=== PATIENT | male | born 1970 | race African-American/Black ===

== ENCOUNTER 2021-07-29 12:42 | Inpatient (IN) ==
[2021-07-29 19:01] LABS: ABS Lymphocytes 0.9 10^3/ul (1.0-4.8); ABS Monocytes 0.2 10^3/ul (0-0.8); ABS Neutrophils 3.5 10^3/ul (1.5-7.7); Eosinophil % 0.2 %; Hematocrit 34 % (42-52); Hemoglobin 11.1 g/dL (14.0-18.0); Lymphocyte % 18.7 %; Mean Corpuscular HGB Conc 33 g/dL (31-36); Mean Corpuscular Hemoglobin 32 pg (27-31); Mean Corpuscular Volume 98 fL (80-94); Mean Platelet Volume 6.1 fL (7.4-10.4); Nucleated Red Blood Cells % 0.4; Platelet Count 431 10^3/uL (150-450); Red Blood Count 3.45 10^6 /uL (4.18-5.48); Red Cell Distribution Width 15 % (10-15); White Blood Count 4.6 10^3/uL (3.5-10.8)
[2021-07-29 19:02] LABS: Albumin 2.2 g/dL (3.2-5.2); Calcium 7.2 mg/dL (8.6-10.3); Magnesium 1.4 mg/dL (1.9-2.7); Total Bilirubin 0.6 mg/dL (0.2-1.0)
[2021-07-29 19:08] LABS: Albumin/Globulin Ratio 0.6 (1-3); C Reactive Protein 36.03 mg/L (<8.01); Globulin 3.5 g/dL (2-4); Total Protein 5.7 g/dL (6.4-8.9)
[2021-07-29 19:10] LABS: Potassium 5.2 mmol/L (3.5-5.0)
[2021-07-29] MEDS ORDERED: Lactated Ringers 1000 ml BAG 1,000 ML IV ONE (21:31)
[2021-07-29] MEDS ORDERED: Magnesium Sulfate 2 gm BAG 2 GM/50 ML BAG IVPB ONE (21:31)
[2021-07-29] MEDS ORDERED: Iohexol 300 (CONTRAST) 10 ML SDV IV ONE (23:23)
[2021-07-30 00:20] LABS: Urine Appearance Cloudy; Urine Bilirubin Negative (Negative); Urine Blood Negative (Negative); Urine Color Yellow; Urine Glucose Negative (Negative); Urine Ketones Trace (Negative); Urine Nitrite Negative (Negative); Urine Protein Negative (Negative); Urine Specific Gravity 1.011 (1.002-1.030); Urine Urobilinogen Negative (Negative)
[2021-07-30 00:25] LABS: Urine Bacteria 1+ (Absent); Urine Red Blood Cell Trace(0-2/hpf) (Absent); Urine Squamous Epithelial Cell Present (Absent); Urine White Blood Cell 3+(>20/hpf) (Absent)
[2021-07-30] MEDS ORDERED: Albuterol HFA INHALER 8 gm MDI INH PRN (01:37)
[2021-07-30] MEDS: Clindamycin 600 MG/D5W BAG 600 MG/50 ML BAG IV SCH ×5 (02:03→19:51)
[2021-07-30 03:22] LABS: Rapid COVID-19 Molecular Undetected (Undetected)
[2021-07-30 06:31] LABS: ABS Lymphocytes 0.9 10^3/ul (1.0-4.8); ABS Monocytes 0.2 10^3/ul (0-0.8); ABS Neutrophils 2.9 10^3/ul (1.5-7.7); Eosinophil % 0.3 %; Hematocrit 26 % (42-52); Hemoglobin 8.6 g/dL (14.0-18.0); Lymphocyte % 22.4 %; Mean Corpuscular HGB Conc 33 g/dL (31-36); Mean Corpuscular Hemoglobin 31 pg (27-31); Mean Corpuscular Volume 96 fL (80-94); Nucleated Red Blood Cells % 0.1; Platelet Count 266 10^3/uL (150-450); Red Blood Count 2.73 10^6 /uL (4.18-5.48); Red Cell Distribution Width 15 % (10-15); White Blood Count 4.1 10^3/uL (3.5-10.8)
[2021-07-30 06:56] LABS: Calcium 6.5 mg/dL (8.6-10.3); Potassium 4.2 mmol/L (3.5-5.0)
[2021-07-30 07:54] LABS: Magnesium 1.9 mg/dL (1.9-2.7)
[2021-07-30] MEDS: NS 0.9% 1000 ml BAG 1,000 ML IV SCH (09:40)
[2021-07-30] MEDS ORDERED: Lactated Ringers 1000 ml BAG 1,000 ML IV ONE (13:33)
[2021-07-30 15:47] LABS: ABS Lymphocytes 0.8 10^3/ul (1.0-4.8); ABS Monocytes 0.2 10^3/ul (0-0.8); ABS Neutrophils 2.5 10^3/ul (1.5-7.7); Eosinophil % 0.3 %; Hematocrit 27 % (42-52); Hemoglobin 8.7 g/dL (14.0-18.0); Lymphocyte % 22.6 %; Mean Corpuscular HGB Conc 33 g/dL (31-36); Mean Corpuscular Hemoglobin 31 pg (27-31); Mean Corpuscular Volume 95 fL (80-94); Mean Platelet Volume 5.9 fL (7.4-10.4); Nucleated Red Blood Cells % 0.1; Platelet Count 312 10^3/uL (150-450); Red Blood Count 2.79 10^6 /uL (4.18-5.48); Red Cell Distribution Width 15 % (10-15); White Blood Count 3.6 10^3/uL (3.5-10.8)
[2021-07-30 15:55] LABS: INR 1.1 (0.86-1.15)
[2021-07-30] MEDS ORDERED: Gadoteridol (CONTRAST) 279.3 MG/ML 10 ML IV ONE (21:12)
[2021-07-31] MEDS: Heparin 5000 UNITS/ML 1 mL VIAL SUBCUT SCH ×4 (00:01→23:42)
[2021-07-31] MEDS ORDERED: Calcium Carb (TUMS) 500 mg CHEW TAB PO PRN (00:32)
[2021-07-31] MEDS: Morphine 2 MG/ML SYRINGE IV PRN (01:06)
[2021-07-31] MEDS: NS 0.9% 1000 ml BAG 1,000 ML IV SCH ×2 (01:38→15:54)
[2021-07-31] MEDS: Clindamycin 600 MG/D5W BAG 600 MG/50 ML BAG IV SCH ×2 (03:52→12:37)
[2021-07-31 06:31] LABS: ABS Monocytes 0.3 10^3/ul (0-0.8); ABS Neutrophils 1.7 10^3/ul (1.5-7.7); Eosinophil % 1.4 %; Hematocrit 24 % (42-52); Hemoglobin 8.1 g/dL (14.0-18.0); Lymphocyte % 32.6 %; Mean Corpuscular HGB Conc 34 g/dL (31-36); Mean Corpuscular Hemoglobin 32 pg (27-31); Mean Corpuscular Volume 94 fL (80-94); Mean Platelet Volume 5.9 fL (7.4-10.4); Nucleated Red Blood Cells % 0.2; Platelet Count 266 10^3/uL (150-450); Red Blood Count 2.56 10^6 /uL (4.18-5.48); Red Cell Distribution Width 15 % (10-15); White Blood Count 3.1 10^3/uL (3.5-10.8)
[2021-07-31 06:50] LABS: Anion Gap 5 mmol/L (2-11); Blood Urea Nitrogen 11 mg/dL (6-24); CO2 Carbon Dioxide 23 mmol/L (22-32); Chloride 104 mmol/L (101-111); Glucose 79 mg/dL (70-100); Magnesium 1.4 mg/dL (1.9-2.7); Potassium 3.5 mmol/L (3.5-5.0); Sodium 132 mmol/L (135-145)
[2021-07-31] MEDS ORDERED: Potassium Chlor 20 meq TAB.ER PO ONE (07:34)
[2021-07-31] MEDS ORDERED: Calcium Gluconate 2 GM in NS 0.9% 100 ml BAG 100 ML IV ONE (08:00)
[2021-07-31] MEDS ORDERED: Magnesium Sulfate IV 3 GM in NS 0.9% 100 ml BAG 100 ML IVPB ONE (08:00)
[2021-07-31 11:35] LABS: Troponin I 0.01 ng/mL (<0.03)
[2021-07-31 14:51] LABS: HIV 4th Generation Nonreactive (Nonreactive)
[2021-07-31] MEDS ORDERED: Piperacillin/Tazobac ADVAN 3.375 GM in NS 0.9% 100 ml BAG 100 ML IV ONE (18:56)
[2021-07-31] MEDS ORDERED: Zosyn per Pharmacy NOTE FOLLOW UP SCH (19:00)
[2021-07-31 19:45] LABS: % Iron Saturation 46 % (15-55); Iron 48 ug/dL (50-212); Total Iron Binding Capacity 105 mcg/dL (250-450); Transferrin < 75 mg/dL (203-362); Unsaturated Iron Binding < 90 ug/dL
[2021-07-31 20:05] LABS: Ferritin 296.1 ng/mL (24-336)
[2021-07-31 21:34] LABS: LDH 176 U/L (140-271)
[2021-07-31] MEDS ORDERED: Ondansetron 4 mg VIAL 2 MG/ML 2 ml VIAL IV ONE (22:26)
[2021-07-31] MEDS: ZOSYN 3.375 GM Q8H per EXTENDED INFUSION IV SCH (23:57)
[2021-08-01] MEDS: Morphine 2 MG/ML SYRINGE IV PRN ×2 (00:08→20:46)
[2021-08-01] MEDS: Heparin 5000 UNITS/ML 1 mL VIAL SUBCUT SCH ×3 (05:51→23:25)
[2021-08-01 07:35] LABS: TSH Ultra Thyroid Stim Horm 1.09 mcIU/mL (0.34-5.60)
[2021-08-01 07:47] LABS: Vitamin B12 > 1450 pg/mL (180-914)
[2021-08-01] MEDS ORDERED: Magnesium Hydroxide LIQ 30 ML UDC PO PRN (10:22)
[2021-08-01] MEDS ORDERED: Polyethylene Glycol 3350 17 GM PACKET PO PRN (10:22)
[2021-08-01] MEDS ORDERED: Ondansetron ODT 4 mg TAB 4 MG TAB PO PRN (10:40)
[2021-08-01] MEDS ORDERED: CALCIUM CARBONATE MAG HYDROXID PO PRN (10:40)
[2021-08-01] MEDS: ZOSYN 3.375 GM Q8H per EXTENDED INFUSION IV SCH ×3 (16:01→23:25)
[2021-08-01] MEDS: NS 0.9% 1000 ml BAG 1,000 ML IV SCH (20:47)
[2021-08-02 05:51] LABS: ABS Eosinophils 0.1 10^3/ul (0-0.6); ABS Lymphocytes 0.8 10^3/ul (1.0-4.8); ABS Monocytes 0.3 10^3/ul (0-0.8); ABS Neutrophils 1.7 10^3/ul (1.5-7.7); Eosinophil % 1.8 %; Hematocrit 24 % (42-52); Hemoglobin 8.1 g/dL (14.0-18.0); Lymphocyte % 28.5 %; Mean Corpuscular HGB Conc 34 g/dL (31-36); Mean Corpuscular Hemoglobin 32 pg (27-31); Mean Corpuscular Volume 95 fL (80-94); Mean Platelet Volume 6.2 fL (7.4-10.4); Nucleated Red Blood Cells % 0.1; Platelet Count 228 10^3/uL (150-450); Red Blood Count 2.54 10^6 /uL (4.18-5.48); Red Cell Distribution Width 15 % (10-15); White Blood Count 2.9 10^3/uL (3.5-10.8)
[2021-08-02] MEDS: Heparin 5000 UNITS/ML 1 mL VIAL SUBCUT SCH ×4 (06:01→21:28)
[2021-08-02 07:31] LABS: Magnesium 1.6 mg/dL (1.9-2.7); Potassium 3.3 mmol/L (3.5-5.0)
[2021-08-02 08:10] LABS: Calcium 6.2 mg/dL (8.6-10.3)
[2021-08-02] MEDS ORDERED: Calcium Gluconate 2 GM in NS 0.9% 100 ml BAG 100 ML IV ONE (09:04)
[2021-08-02] MEDS ORDERED: Magnesium Sulfate IV 3 GM in NS 0.9% 100 ml BAG 100 ML IVPB ONE (09:04)
[2021-08-02] MEDS: ZOSYN 3.375 GM Q8H per EXTENDED INFUSION IV SCH ×3 (10:33→23:25)
[2021-08-02] MEDS: Potassium Chlor 20 meq TAB.ER PO SCH ×2 (18:31→20:06)
[2021-08-02] MEDS: Morphine 2 MG/ML SYRINGE IV PRN (21:28)
[2021-08-02] MEDS: NS 0.9% 1000 ml BAG 1,000 ML IV SCH (23:25)
[2021-08-03] MEDS: Heparin 5000 UNITS/ML 1 mL VIAL SUBCUT SCH ×2 (05:31→14:57)
[2021-08-03 06:54] LABS: Hematocrit 24 % (42-52); Hemoglobin 8.1 g/dL (14.0-18.0); Mean Corpuscular HGB Conc 34 g/dL (31-36); Mean Corpuscular Hemoglobin 32 pg (27-31); Mean Corpuscular Volume 96 fL (80-94); Mean Platelet Volume 6.2 fL (7.4-10.4); Platelet Count 256 10^3/uL (150-450); Red Blood Count 2.49 10^6 /uL (4.18-5.48); Red Cell Distribution Width 16 % (10-15); White Blood Count 2.8 10^3/uL (3.5-10.8)
[2021-08-03 07:00] LABS: INR 1.07 (0.86-1.15)
[2021-08-03 07:08] LABS: Magnesium 1.8 mg/dL (1.9-2.7); Potassium 3.7 mmol/L (3.5-5.0)
[2021-08-03 07:42] LABS: Calcium 6.4 mg/dL (8.6-10.3)
[2021-08-03] MEDS ORDERED: Magnesium Sulfate IV 1GM/100ML 1 GM/100 ML BAG IV ONE (07:45)
[2021-08-03] MEDS ORDERED: Calcium Gluconate 2 GM in NS 0.9% 100 ml BAG 100 ML IV ONE (07:45)
[2021-08-03] MEDS ORDERED: Potassium Chlor 20 meq TAB.ER PO ONE (07:45)
[2021-08-03] MEDS: ZOSYN 3.375 GM Q8H per EXTENDED INFUSION IV SCH ×2 (08:36→15:32)
[2021-08-03] MEDS: Potassium Chloride LIQUID 20 MEQ/15 ML LIQUID PO SCH ×2 (08:57→22:51)
[2021-08-03 13:50] LABS: C Reactive Protein 20.98 mg/L (<8.01)
[2021-08-03] MEDS ORDERED: NS 0.9% 100 ml BAG 100 ML ONE (15:30)
[2021-08-03] MEDS: Enoxaparin 40 MG/0.4 ML SYR SUBCUT SCH (15:32)
[2021-08-03] MEDS: NS 0.9% 1000 ml BAG 1,000 ML IV SCH (22:55)
[2021-08-03] MEDS: Morphine 2 MG/ML SYRINGE IV PRN (23:00)
[2021-08-04] MEDS: ZOSYN 3.375 GM Q8H per EXTENDED INFUSION IV SCH ×4 (00:45→23:03)
[2021-08-04 06:58] LABS: ABS Eosinophils 0.1 10^3/ul (0-0.6); ABS Lymphocytes 1.2 10^3/ul (1.0-4.8); ABS Monocytes 0.3 10^3/ul (0-0.8); ABS Neutrophils 1.7 10^3/ul (1.5-7.7); Eosinophil % 2.1 %; Hematocrit 28 % (42-52); Hemoglobin 9.4 g/dL (14.0-18.0); Lymphocyte % 37.3 %; Mean Corpuscular HGB Conc 34 g/dL (31-36); Mean Corpuscular Hemoglobin 32 pg (27-31); Mean Corpuscular Volume 96 fL (80-94); Mean Platelet Volume 6.4 fL (7.4-10.4); Nucleated Red Blood Cells % 0.2; Platelet Count 316 10^3/uL (150-450); Red Blood Count 2.91 10^6 /uL (4.18-5.48); Red Cell Distribution Width 16 % (10-15); White Blood Count 3.3 10^3/uL (3.5-10.8)
[2021-08-04 07:05] LABS: INR 1.06 (0.86-1.15)
[2021-08-04 07:15] LABS: Calcium 6.9 mg/dL (8.6-10.3); Magnesium 1.7 mg/dL (1.9-2.7); Potassium 4.5 mmol/L (3.5-5.0)
[2021-08-04] MEDS: Potassium Chloride LIQUID 20 MEQ/15 ML LIQUID PO SCH ×2 (09:34→20:52)
[2021-08-04] MEDS ORDERED: NS 0.9% 100 ml BAG 100 ML ONE (11:00)
[2021-08-04] MEDS ORDERED: Magnesium Sulfate IV 3 GM in NS 0.9% 100 ml BAG 100 ML IVPB ONE (11:00)
[2021-08-04] MEDS: NS 0.9% 1000 ml BAG 1,000 ML IV SCH (15:44)
[2021-08-04] MEDS: Enoxaparin 40 MG/0.4 ML SYR SUBCUT SCH (15:47)
[2021-08-04] MEDS: Calcium Citrate 200 mg TAB PO SCH (20:47)
[2021-08-05] MEDS: NS 0.9% 1000 ml BAG 1,000 ML IV SCH (05:34)
[2021-08-05 05:39] LABS: ABS Lymphocytes 0.9 10^3/ul (1.0-4.8); ABS Monocytes 0.3 10^3/ul (0-0.8); ABS Neutrophils 1.6 10^3/ul (1.5-7.7); Eosinophil % 1.7 %; Hematocrit 24 % (42-52); Hemoglobin 8.1 g/dL (14.0-18.0); Lymphocyte % 31.5 %; Mean Corpuscular HGB Conc 33 g/dL (31-36); Mean Corpuscular Hemoglobin 32 pg (27-31); Mean Corpuscular Volume 95 fL (80-94); Nucleated Red Blood Cells % 0.1; Platelet Count 266 10^3/uL (150-450); Red Blood Count 2.56 10^6 /uL (4.18-5.48); Red Cell Distribution Width 16 % (10-15); White Blood Count 2.9 10^3/uL (3.5-10.8)
[2021-08-05 05:55] LABS: Magnesium 1.8 mg/dL (1.9-2.7); Potassium 4.2 mmol/L (3.5-5.0)
[2021-08-05 05:58] LABS: Calcium 6.2 mg/dL (8.6-10.3)
[2021-08-05 06:48] LABS: Vitamin D Total 25(OH) 55.4 ng/mL (20-50)
[2021-08-05] MEDS ORDERED: Magnesium Sulfate 2 gm BAG 2 GM/50 ML BAG IVPB ONE (06:50)
[2021-08-05] MEDS ORDERED: Calcium Gluconate 2 GM in NS 0.9% 100 ml BAG 100 ML IV ONE (08:00)
[2021-08-05 08:44] LABS: Calcium (PTH Intact) 6.2 mg/dL (8.6-10.3)
[2021-08-05] MEDS: Calcium Citrate 200 mg TAB PO SCH (10:13)
[2021-08-05] MEDS: Potassium Chloride LIQUID 20 MEQ/15 ML LIQUID PO SCH (10:14)
[2021-08-05] MEDS: ZOSYN 3.375 GM Q8H per EXTENDED INFUSION IV SCH (11:36)
[2021-08-05 11:46] VITALS: BP 124/74
== END 2021-08-05 14:30 | disposition home or self-care (01) | DRG 114 ==
LOC: ED 12:42 → SUATTDRO 07-30 01:30 → EDHOLD 07-30 01:30 → SSU 07-30 10:03
PROVIDERS: ADMIT Hospitalist; ATTEND Internal Medicine